=== PATIENT | female | born 1980 | race Caucasian/White ===

== ENCOUNTER 2016-05-28 07:57 | Outpatient (CLI) | payer OTHER ==
[2016-05-28] MEDS ORDERED: BETAMETHASONE ACET 6 MG/ML 5ML VIAL IM ONE (08:03)
== END 2016-05-28 08:35 | disposition home or self-care (01) ==
LOC: FBCOUT 07:57 → FBC 07:59 → FBCOUT 08:35
PROVIDERS: ATTEND Family Medicine
DX: O26.899 Other specified pregnancy related conditions, unspecified trimester (principal); Z3A.00 Weeks of gestation of pregnancy not specified
CPT/HCPCS: 96372; J0702

== ENCOUNTER 2016-05-29 07:57 | Outpatient (CLI) | payer OTHER ==
[2016-05-29] MEDS: BETAMETHASONE ACET 6 MG/ML 5ML VIAL IM ONE (08:19)
== END 2016-05-29 08:25 | disposition home or self-care (01) ==
LOC: FBCOUT 07:57 → FBC 07:57 → FBCOUT 08:25
PROVIDERS: ATTEND Family Medicine
DX: O26.899 Other specified pregnancy related conditions, unspecified trimester (principal); Z3A.00 Weeks of gestation of pregnancy not specified

== ENCOUNTER 2016-05-30 05:14 | Inpatient (IN) | payer OTHER ==
[2016-05-30] MEDS ORDERED: IV START KIT ONE ×2 (05:23→07:00)
[2016-05-30] MEDS ORDERED: LACTATED RINGERS 1,000 ML ONE (05:24)
[2016-05-30] MEDS ORDERED: CEFAZOLIN SODIUM 2 GRAM DUPLEX 2 G in Premix (D5W) 50 ml 1 EACH IV PRN (05:34)
[2016-05-30] MEDS ORDERED: [UNRECOGNIZED DRUG - SUPPLY] TP ONE (05:34)
[2016-05-30 06:00] VITALS: BMI 28.9
[2016-05-30] MEDS: LACTATED RINGERS 1,000 ML IV SCH ×3 (06:35→17:55)
[2016-05-30] MEDS ORDERED: MORPHINE SULFATE (DURAMORPH) 1 MG/ML 10ML AMP ONE (06:52)
[2016-05-30] MEDS ORDERED: FENTANYL 100 MCG/2 ML VIAL ONE (06:52)
[2016-05-30] MEDS ORDERED: CEFAZOLIN SODIUM 2 GRAM DUPLEX 50 ML IV ONE (06:58)
[2016-05-30] MEDS ORDERED: OXYTOCIN 10 UNITS/ML VIAL ONE ×2 (06:58→08:05)
[2016-05-30] MEDS ORDERED: EPHEDRINE SULFATE UD SYR 25 MG 25 MG/5 ML SYRINGE IV ONE (06:58)
[2016-05-30] MEDS ORDERED: SPINAL PROCEDURAL TRAY 1 EACH ONE (06:59)
[2016-05-30] MEDS ORDERED: BUPIVACAINE 0.75% SPINAL AMPUL 2 ML ONE (07:00)
--- NOTE | 2016-05-30 07:03 | PDOC1 ---
- HPI 35 year old female at 36 5/7 weeks gestational age by LMP, confirmed with 18-week ultrasound who requires primary LTCS for means of delivery due to complete placenta previa. She presents for assessment and review of history in anticipation of her upcoming surgery. Today patient denies any changes in health. Her course has been followed for the following problem list. 36 5/7 week Placenta Previa Desire for permanent sterilization SOCIAL HISTORY: Marital status: , FOB involved: yes, No Tobacco, alcohol use, or drug use. FAMILY HISTORY: No congenital abnormalities or twins. Allergies/Adverse Reactions: Allergies No Known Allergies Allergy (Verified 05/28/16 08:23) - Labs & Studies LABS: Blood Type-B popsitive, Antibody [NEG], Rubella [Immune], RPR-[Negative], HbsAg-[Negative], HIV-[Negative] Pap neg, GC/Chlamydia-[Negative], UA-[Negative], Quad/Integrated Screen-[Negative], 1 hr GTT-neg REVIEW OF DATES: LMP 09/15/15-> [facility] 06/21/16 Ultrasound on 01/24/16 @ 18w 5d WGA -> EDC 06/21/16, low lying placenta Repeat US 04/04/16 placenta previa Confirmed complete previa at 35 weeks EGA - Physical Exam General: Afebrile, No Acute Distress Psych/Mental Status: Mood/Affect Appropriate, Judgment/Insight Intact Neurological: Grossly Intact, Alert, Oriented x 4 HEENT: Atraumatic, PERRLA, EOMI, Mucous membr. moist/pink Lungs: Clear to Auscultation Bilaterally Cardiovascular: Regular Rate and Rhythm, No Murmur Abdomen: Normal Bowel Sounds Genitourinary: Normal Female Genitalia Rectal Exam: Deferred Extremities: Full ROM, No Edema Deep Tendon Reflexes: Patellar (L): 2+ (Brisk, Normal), Patellar (R): 2+ (Brisk , Normal) Skin: Normal Color, Warm, Dry, Intact, No Rash - Assessment & Plan 23 y/o at 36 5/7 weeks by [LMP] with complete placenta previa and desire for permanent sterilization who will present for primary LTCS. Discussed with patient the risks of and bilateral tubaligation including infection, bleeding possibly requiring blood transfusion and even hysterectomy, damage to underlying structures including bowel, bladder, uterus, tubes, ovaries, baby, and ureter, as well as will have a scar and can have persistent pain and numbness at incision site. The patient agrees to proceed with LTCS and will arrive at scheduled time for preop. She was advised to avoid any food or drink 8 hours prior to scheduled surgery.
[2016-05-30 07:23] LABS: HEMATOCRIT 31.5 % (37.0-47.0); HEMOGLOBIN 10.2 gm/l (12.0-16.0); MEAN CELL VOLUME 84.9 fl (81.0-99.0); MEAN CORPUSCULAR HEMOGLOBIN 27.5 pg (27.0-31.0); MEAN CORPUSCULAR HGB CONC 32.4 g/dl (33.0-37.0); RED CELL DISTRIBUTION WIDTH 12.6 % (11.5-14.5)
[2016-05-30] MEDS ORDERED: DIPHENHYDRAMINE HCL 50 MG/1 ML VIAL IV PRN ×2 (08:00→09:14)
[2016-05-30] MEDS ORDERED: MORPHINE SULFATE 2 MG/ML SYRINGE IV PRN (08:00)
[2016-05-30] MEDS ORDERED: HYDROMORPHONE HCL 1 MG/ML SYRINGE IV PRN (08:00)
[2016-05-30] MEDS ORDERED: NALBUPHINE HCL 20 MG/ML AMP IV PRN (08:00)
[2016-05-30] MEDS ORDERED: MORPHINE SULFATE 10 MG/ML SYRINGE IV PRN (08:00)
[2016-05-30] MEDS ORDERED: PROMETHAZINE HCL 25 MG/ML VIAL IM PRN (08:00)
[2016-05-30] MEDS ORDERED: HYDROMORPHONE HCL 2 MG/ML SYRINGE IV PRN (08:00)
[2016-05-30] MEDS ORDERED: NALOXONE HCL 0.4 MG/ML VIAL IV PRN (08:00)
[2016-05-30] MEDS ORDERED: MORPHINE SULFATE 4 MG/ML SYRINGE IV PRN (08:00)
[2016-05-30] MEDS ORDERED: EPHEDRINE SULFATE 50 MG/ML 1ML VIAL IV PRN (08:00)
[2016-05-30] MEDS ORDERED: ONDANSETRON 4 MG/2ML 2 ML VIAL IV PRN ×2 (08:00→09:14)
[2016-05-30] MEDS ORDERED: KETOROLAC TROMETHAMINE 30 MG/ML 1 ML VIAL ONE (08:34)
--- NOTE | 2016-05-30 08:50 | PCMBPN ---
Brief Post Op Note: Date of Procedure: 05/30/16 Start Time: 0748 Finished at 0837 Preoperative Diagnosis: 1. 36 5/7 week 2. Placenta Previa 3. Desire for permanent sterilization Postoperative Diagnosis: 1. [Same] Procedure: Primary Low Transverse Section and Bilateral Tubaligation Surgeon: Jessica Joshua MD Assist: Dr. Rivas Anesthesia: Spinal Findings: Viable female , small anterior uterine fibroid Condition: stable Complications: none IV Fluids: 2500 mLs of LR Urine Output: 100 mLs Estimated Blood Loss: 800 mLs Tourniquet Time: [N/A] Specimens: [N/A] Implants: N/A Drains: [N/A]
--- NOTE | 2016-05-30 08:59 | PDOC37 ---
Procedure: [] Section Date of Procedure: 05/30/16 Start Time: [] Preoperative Diagnosis: 1. 36 week intrauterine . 2. [] Postoperative Diagnosis: Same Surgeon: Jessica Joshua MD Assist: [] Indication for Procedure: 35 year old, at 36 weeks 5 days with complete placenta previa and desire for permanent sterilization Anesthesia: Spinal with Duramorph Complications: None Estimated Blood Loss: 800 mLs IV Fluids: 2500 mLs of LR Medications: 2 gm of Ancef for routine prophylaxis. 20 units of Pitocin. Urine Output: 100 mLs of clear urine Findings: Fluid clear. Normal uterus, ovaries, and tubes. Procedure: The patient was taken to the operating room where spinal anesthesia was found to be adequate. She was then prepared and draped in the normal sterile fashion in the dorsal supine position with a leftward tilt. A timeout was performed. A Pfannensteil skin incision was then made with the scalpel and carried through to the underlying layer of fascia with the scalpel. The fascia was incised in the midline and the incision extended laterally with the Lazaro scissors. The superior aspect of the fascial incision was then grasped with the Donny clamps, elevated, and the underlying rectus muscles dissected off bluntly and sharply where needed. Attention was then turned to the inferior aspect of the incision which, in a similar fashion, was grasped, tented up with the Donny clamps, and the rectus muscle dissected off bluntly and sharply with Lazaro scissors. The rectus muscles were then in the midline, and the peritoneum was identified and entered bluntly. The peritoneal incision was then extended by stretching with good visualization of the bladder. The Randell retractor was then inserted and the vesicouterine peritoneum identified, grasped with pick-ups and entered sharply with the Metzenbaum scissors. The incision was then extended laterally and the bladder flap created digitally. The lower uterine segment incised in a transverse fashion with the scalpel. The uterine incision was then extended laterally by pulling superolaterally on both sides and using bandage scissors to extend to the maternal left. Membranes were ruptured and fluid was clear. The infant's head was flexed out of OA position and delivered atraumatically. A viable female was delivered. The nose and mouth were suctioned with bulb suction and the cord was clamped after 2 minute delay and cut. The infant was handed off to the waiting staff design engineer. The placenta was then delivered with gentle cord traction. The uterus was then exteriorized and cleared of all clots and debris. The uterine incision was repaired with 0 vicryl in a running, locked fashion. A second layer of the same suture was used in an imbricating fashion to obtain excellent hemostasis. Bilateral tubal ligation: Attention was then turned to the patient's bilateral tubal ligation. A [place] was used to pickling grader the left fallopian tube and a Modified Pillager-type of tubal ligation was performed using 0 Vicryl suture, ligating each tube twice. The midportion was then excised and submitted for pathology. The same procedure was done on the opposite side. Hemostasis of stumps was excellent. The gutters were cleared of all clots. The uterus was returned to the abdomen and the Randell removed. The peritoneum was closed with Vicryl. The fascia was reapproximated with 0 Vicryl in a running fashion. The skin was closed with najma. The patient tolerated the procedure well. Sponge, lap and needle counts were correct times three. A debriefing was held at the end of the procedure with anesthesia and nursing staff. The patient and her baby girl were taken to the recovery room in stable condition. Alphonse Joshua MD
[2016-05-30] MEDS ORDERED: DIPHENHYDRAMINE HCL 25 MG CAPSULE PO PRN (09:14)
[2016-05-30] MEDS ORDERED: OXYCODONE HCL 5 MG TABLET PO PRN (09:14)
[2016-05-30] MEDS ORDERED: LANOLIN 50 APPLIC/7G TUBE TP PRN (09:14)
[2016-05-30] MEDS: DOCUSATE SODIUM 100 MG CAPSULE PO SCH ×2 (09:15→23:40)
[2016-05-30] MEDS: PRENATAL VIT/FE FUMARATE/FA 1 TABLET PO SCH (09:15)
[2016-05-30] MEDS: KETOROLAC TROMETHAMINE 30 MG/ML 1 ML VIAL IV SCH ×2 (15:01→20:50)
[2016-05-31] MEDS: LACTATED RINGERS 1,000 ML IV SCH ×3 (02:27→23:07)
[2016-05-31] MEDS: KETOROLAC TROMETHAMINE 30 MG/ML 1 ML VIAL IV SCH (02:31)
[2016-05-31 06:51] LABS: HEMATOCRIT 30.2 % (37.0-47.0); HEMOGLOBIN 9.7 gm/l (12.0-16.0)
[2016-05-31] MEDS ORDERED: KETOROLAC TROMETHAMINE 30 MG/ML 1 ML VIAL IV PRN (08:35)
[2016-05-31] MEDS ORDERED: LACTATED RINGERS 1,000 ML IV.SOLN ONE (08:48)
[2016-05-31] MEDS: PRENATAL VIT/FE FUMARATE/FA 1 TABLET PO SCH (09:03)
[2016-05-31] MEDS: IBUPROFEN 800 MG TABLET PO PRN ×3 (09:03→21:28)
[2016-05-31] MEDS: DOCUSATE SODIUM 100 MG CAPSULE PO SCH ×2 (09:03→21:28)
[2016-05-31] MEDS: OXYCODONE/ACETAMINOPHEN 5/325 MG TABLET PO PRN ×2 (12:11→18:07)
[2016-06-01] MEDS: OXYCODONE/ACETAMINOPHEN 5/325 MG TABLET PO PRN ×2 (03:01→19:32)
[2016-06-01] MEDS: DOCUSATE SODIUM 100 MG CAPSULE PO SCH ×2 (09:22→22:00)
[2016-06-01] MEDS: PRENATAL VIT/FE FUMARATE/FA 1 TABLET PO SCH (09:22)
[2016-06-01] MEDS: IBUPROFEN 800 MG TABLET PO PRN ×2 (09:22→17:22)
--- NOTE | 2016-06-01 12:22 | PDOC44 ---
- Subjective Day: 2 Reports Flatus, Reports Pain Tolerable, Reports (pumping), Reports Lochia Light, Reports Tolerating Regular Diet, Denies Nausea, Denies Vomiting - Objective Temp Pulse Resp BP Pulse Ox 98.1 F 75 14 118/68 100 06/01/16 09:24 06/01/16 09:24 06/01/16 09:24 06/01/16 09:24 05/30/16 12:20 Current Medications Generic Name Dose Route Start Last Admin Trade Name Freq PRN Reason Stop Dose Admin Diphenhydramine HCl 25 - 50 mg 05/30/16 09:14 Benadryl PO Q6H PRN Itching (Mild/Moderate) Docusate Sodium 100 mg 05/30/16 09:14 06/01/16 09:22 Colace PO 100 mg BID SUMANTH Administration Emollient Ointment 1 applic 05/30/16 09:14 05/31/16 12:11 [id number] TP 1 applic PRN PRN Administration sore nipples Ibuprofen 800 mg 05/30/16 14:35 06/01/16 09:22 Motrin PO 800 mg Q6H PRN Administration Pain Multivi/Iron Carb/Fe Sulf/FA/Prenat 1 tab 05/30/16 09:14 06/01/16 09:22 Plus PO 1 tab DAILY SUMANTH Administration Oxycodone HCl 5 - 10 mg 05/30/16 09:14 Roxicodone PO Q3H PRN Pain (Severe) Oxycodone/Acetaminophen 1 - 2 tab 05/30/16 09:14 06/01/16 03:01 Percocet 5/325 PO 1 tab Q4H PRN Administration Pain (Moderate) - Physical Exam General: Afebrile, No Acute Distress Psych/Mental Status: Mood/Affect Appropriate, Bonding Well, Anxious (about breast feeding) Neurological: Alert, Oriented x 4 HEENT: Atraumatic, PERRLA, EOMI, Mucous membr. moist/pink Lungs: Clear to Auscultation Bilaterally Cardiovascular: Regular Rate and Rhythm, No Murmur Breast: Soft, Nipples Intact, No Nipples Cracked Fundus: Firm, Midline, Below Umbilicus Abdomen: Normal Bowel Sounds Genitourinary: Normal Female Genitalia Lochia: Light Extremities: Full ROM, No Edema, No Tenderness Skin: Normal Color, Warm, Dry, Intact, No Rash Wound CLINICAL ASSISTANT: Well Approximated, [place] Intact - Problems:Assessment/Plan (1) delivery, delivered, current hospitalization Status: AcuteAssessment/Plan: stable, continue post care. Disposition: Stable, Anticipate DC Home Tomorrow
--- NOTE | 2016-06-01 12:26 | PDOC36 ---
Provider Note Subject: late entry post op note for 05/31/16: S/ Flatus, no nausea, tolerating regular diet. Trouble with latch but pumping and getting a good amount of colostrum. Light lochia O/ VSS Afeb H/H 9.7/30.2 Bandage removed and incision intact, no erythema or drainage uterus firm just below umbilicus ext without edema A/Stable post op day 1 P/ Continue routine care, discharge will be planned for POD 3. Alphonse Joshua MD
[2016-06-02] MEDS: IBUPROFEN 800 MG TABLET PO PRN ×2 (02:26→09:29)
[2016-06-02 08:44] VITALS: BP 112/61
[2016-06-02] MEDS: DOCUSATE SODIUM 100 MG CAPSULE PO SCH (09:29)
[2016-06-02] MEDS: OXYCODONE/ACETAMINOPHEN 5/325 MG TABLET PO PRN (09:33)
[2016-06-02] MEDS: PRENATAL VIT/FE FUMARATE/FA 1 TABLET PO SCH (09:33)
--- NOTE | 2016-06-02 11:27 | PDOC39B ---
Hospital Course: ADMIT DATE: 05/30/16 DISCHARGE DATE: 06/02/16 ADMISSION DIAGNOSES: 36 5/7 weeks , Placenta Previa PROCEDURES: Primary low transverse Section and Bilateral tubal Ligation HISTORY OF PRESENT ILLNESS: 35 year old G2 T1 L1 at 36 weeks 5 days presenting with Placenta Previa and desire for permanent sterilization required Section so she requested Tubal ligation as well and those were accomplished without complication. HOSPITAL COURSE: The patient had initial nausea during post op day 1 but that resolved and the remainder of her postoperative course was unremarkable. By day of discharge the patient is ambulating, eating, voiding, and passing flatus without difficulty. Pain is controlled and lochia is appropriate. She is [] - Physical Exam Vital Signs: Temp Pulse Resp BP Pulse Ox 98.4 F 78 18 112/61 100 06/02/16 08:38 06/02/16 08:38 06/02/16 08:38 06/02/16 08:38 05/30/16 12:20 General: Afebrile, No Acute Distress Psych/Mental Status: Mood/Affect Appropriate Neurological: Alert, Oriented x 4 HEENT: Atraumatic, PERRLA, EOMI, Mucous membr. moist/pink Lungs: Clear to Auscultation Bilaterally Cardiovascular: Regular Rate and Rhythm, No Murmur Breast: Soft, Engorged, No Nipples Cracked Fundus: Firm, Midline, At Umbilicus Abdomen: Normal Bowel Sounds Genitourinary: Normal Female Genitalia Lochia: Light Extremities: Full ROM, No Edema Skin: Normal Color, Warm, Dry, Intact, No Rash Wound: Well Approximated, [place] Intact (removed with staple remover and steri strips placed) - Discharge Diagnosis (1) delivery, delivered, current hospitalization Status: AcuteAssessment/Plan: stable, discharge home, FU 1-2 weeks. - Discharge Plan Condition: Good Disposition: Home Instruction Forms: Section Discharge Instructions Prescriptions: Ibuprofen [IBUPROFEN 800 MG TABLET (SHF)] 800 mg PO Q6H PRN #40 PRN Reason: Pain Oxycodone HCl/Acetaminophen [PERCOCET 5/325 MG TABLET (SHF)] 1 - 2 tab PO Q4H PRN #40 PRN Reason: Pain (Moderate) Pnv No.122/Iron/Folic Acid [ Multi Tablet] 1 each PO DAILY #100 tablet Vitamin D3 [VITAMIN D3 1000 UNITS SOFTGEL (SHF)] 5,000 units PO DAILY #100 softgel Follow-Up: Jessica Joshua MD [Primary Care Provider] - In 7-10 days
--- NOTE | 2016-06-03 13:17 | SURGPATH ---
[facility] [address] [place] [id number] Patient Name: TRISTA HARMON MR#: [id number] : 1980 Gender: F Specimen #: [id number] Collected: 05/30/2016 Received: 05/31/2016 Reported: 06/03/2016 Submitting Phys: BLANCA KONG Copy To Phys: [facility] Clinical History / Pre-Operative Diagnosis: None provided Specimen Source / Surgical Procedure Performed: Segment of right and left fallopian tubes (right tube with stitch) Interpretation: FALLOPIAN TUBES, RIGHT AND LEFT, PARTIAL SALPINGECTOMY: - FULL CROSS SECTION OF BILATERAL FALLOPIAN TUBE SEGMENTS SHOWING NO DIAGNOSTIC ABNORMALITIES. Electronically Signed Out Edison Mcgill M.D., Ph.D. Gross Description: The specimen is received in a formalin filled container labeled with the patient's name and "fallopian tubes". Two cylindrical segments of pink-oro tissue are 1.0 x 0.6 cm and 2.0 x 0.6 cm. The longer segment has an attached suture and is inked black. A architectural representative cross-section of each is submitted in one cassette. [place] PMarika. Microscopic Description: Full cross section of bilateral fallopian tube segments microscopically examined. 1: [id number] Z30.2
== END 2016-06-02 12:35 | disposition home or self-care (01) | DRG 766 ==
LOC: FBC 05:14
PROVIDERS: ADMIT Family Medicine; ATTEND Family Medicine
PROC: 10D00Z1 Extraction of Products of Conception, Low, Open Approach (ICD-10-PCS; principal; 2016-05-30)
PROC: 0UL70ZZ Occlusion of Bilateral Fallopian Tubes, Open Approach (ICD-10-PCS; 2016-05-30)
DX: O44.03 Complete placenta previa NOS or without hemorrhage, third trimester (principal); Z3A.36 36 weeks gestation of pregnancy; Z37.0 Single live birth; Z30.2 Encounter for sterilization

== ENCOUNTER 2016-06-04 15:01 | Outpatient (CLI) | payer OTHER | END 2016-06-04 15:02 | disposition home or self-care (01) | LOC: BABIESSH 15:01 | PROVIDERS: ATTEND Family Medicine | DX: Z39.1 Encounter for care and examination of lactating mother (principal) ==

== ENCOUNTER 2016-06-07 14:07 | Outpatient (CLI) | payer OTHER | END 2016-06-07 14:08 | disposition home or self-care (01) | LOC: BABIESSH 14:07 | PROVIDERS: ATTEND Family Medicine | DX: Z39.1 Encounter for care and examination of lactating mother (principal) ==

== ENCOUNTER 2016-06-11 14:59 | Outpatient (CLI) | payer OTHER | END 2016-06-11 15:00 | disposition home or self-care (01) | LOC: BABIESSH 14:59 | PROVIDERS: ATTEND Family Medicine | DX: Z39.1 Encounter for care and examination of lactating mother (principal) ==